=== PATIENT | female | born 1945 ===

== ENCOUNTER 2020-08-29 06:21 | Day surgery (SDC) | payer OTHER ==
[~2020-08-29 06:21] MED LIST: IBUPRO PO
[2020-08-29] MEDS ORDERED: PERCOCET 5-3251 EACH PO (08:28)
== END 2020-08-29 10:30 | disposition home or self-care (01) ==
LOC: CIR.AMB 06:21
PROVIDERS: ATTEND Surgery
DX: C20 Malignant neoplasm of rectum (principal); Z20.822 Contact with and (suspected) exposure to COVID-19
CPT/HCPCS: 36561; C1751

== ENCOUNTER 2020-12-22 07:10 | Day surgery (SDC) | payer OTHER ==
[~2020-12-22 07:10] MED LIST changes: +PERCOCET 5-3251 EACH PO
== END 2020-12-22 12:15 | disposition home or self-care (01) ==
LOC: AMB-ENDOS 07:10
PROVIDERS: ATTEND Surgery
DX: D12.4 Benign neoplasm of descending colon (principal); Z20.822 Contact with and (suspected) exposure to COVID-19

== ENCOUNTER 2021-02-04 11:15 | Inpatient (IN) | payer OTHER ==
[~2021-02-04] VITALS: Ht 160 cm; Wt 47.2 kg
[2021-02-04] MEDS ORDERED: NEURONTIN300 MG PO (14:39)
[2021-02-12] MEDS ORDERED: TRAM1TAB98 (08:53)
[2021-02-12] MEDS ORDERED: FUSION PLUS CA1 EACH (08:54)
[2021-02-12] MEDS ORDERED: FENTANYL1 EAC4 (08:54)
[2021-02-12] MEDS ORDERED: ESCITALOPRAM OX10 MG (08:54)
[2021-02-12] MEDS ORDERED: FAMOTIDINE10 MG/1 ML (08:54)
[2021-02-12] MEDS ORDERED: ONDANSETRON4 MG/2 M5 (08:54)
[2021-02-12] MEDS ORDERED: DIPHENHYDR50 MG/1 M1 (08:54)
[2021-02-12] MEDS ORDERED: OXYC1TAB9 (08:54)
[2021-02-12] MEDS ORDERED: IBUPROFEN800 MG (08:55)
[2021-02-12] MEDS ORDERED: CELECOXIB200 MG (08:55)
[2021-02-12] MEDS ORDERED: DOK100 MG (08:55)
[2021-02-13] MEDS ORDERED: PERCOCET 5-3251 EACH PO (09:26)
== END 2021-02-13 12:12 | disposition home or self-care (01) | DRG 330 ==
LOC: ADM 11:15 → EDSTATUS 11:15 → SURH 02-10 06:44 → O/R 02-10 06:44 → SURH 02-10 07:00
PROVIDERS: ADMIT Surgery; ATTEND Surgery
PROC: 0DTP4ZZ Resection of Rectum, Percutaneous Endoscopic Approach (ICD-10-PCS; 2021-02-10)
PROC: 07BC4ZX Excision of Pelvis Lymphatic, Percutaneous Endoscopic Approach, Diagnostic (ICD-10-PCS; 2021-02-10)
PROC: 0QB Lower Bones, Excision (ICD-10-PCS; 2021-02-10)
PROC: 0DBN4ZZ Excision of Sigmoid Colon, Percutaneous Endoscopic Approach (ICD-10-PCS; principal; 2021-02-10 07:00)
DX: C20 Malignant neoplasm of rectum (principal); C79.51 Secondary malignant neoplasm of bone; D50.8 Other iron deficiency anemias; R59.0 Localized enlarged lymph nodes